=== PATIENT | female | born 1990 | race Caucasian/White ===

== ENCOUNTER 2024-02-27 09:45 | Inpatient (IN) | payer BC ==
[2024-02-27 10:36] LABS: APPEARANCE,URINE CLEAR; BILIRUBIN,URINE NEGATIVE (NEGATIVE); COLOR,URINE YELLOW; GLUCOSE,URINE NEGATIVE (NEGATIVE); KETONES,URINE NEGATIVE (NEGATIVE); LEUKOCYTE ESTERASE,URINE TRACE (NEGATIVE); NITRITE,URINE NEGATIVE (NEGATIVE); OCCULT BLOOD,URINE MODERATE (NEGATIVE); PROTEIN,URINE NEGATIVE (NEGATIVE); UROBILINOGEN,URINE 0.2 EU/dL (<2.0)
[2024-02-27] MEDS ORDERED: Misoprostol 200 MCG Tab PO PRN (10:41)
[2024-02-27] MEDS ORDERED: Butorphanol 2 MG/ML SDV IVPUSH PRN (10:41)
[2024-02-27] MEDS ORDERED: Sodium Chloride 0.9% 20 ML SDV IV PRN (10:41)
[2024-02-27] MEDS ORDERED: Sodium Chloride 0.9% 2.5 ML Syringe FLUSH PRN (10:41)
[2024-02-27] MEDS ORDERED: Carboprost Tromethamine 250 MCG/1 mL Vial IM PRN (10:41)
[2024-02-27] MEDS ORDERED: Sodium Chloride 0.9% 10 ML Syringe FLUSH PRN (10:41)
[2024-02-27] MEDS ORDERED: Tranexamic Acid IN NACL,ISO-OS 1,000 MG in Premix Bag 1 BAG IV PRN (10:41)
[2024-02-27] MEDS ORDERED: Methylergonovine 0.2 MG/1 ML Amp IM PRN (10:41)
[2024-02-27] MEDS ORDERED: Water For Irrigation,Sterile 1,000 ML Container IRR PRN (10:41)
[2024-02-27] MEDS ORDERED: Ondansetron 4 MG/2 ML SDV IVPUSH PRN (10:41)
[2024-02-27] MEDS ORDERED: Lidocaine 1% 50 ML MDV INJECT PRN (10:41)
[2024-02-27 11:03] LABS: HEMATOCRIT 35.1 % (37.0-47.0); HEMOGLOBIN 12.2 g/dL (12.0-16.0); MEAN CORPUSCULAR HEMOGLOBIN 29.9 pg (28.0-32.0); MEAN CORPUSCULAR HGB CONC 34.8 g/dL (32.0-36.0); MEAN PLATELET VOLUME 10.8 fL (9.4-12.3); PLATELET COUNT,PLT 220 K/uL (150-400); RED BLOOD CELL COUNT 4.08 M/uL (4.10-5.30); WHITE BLOOD CELL COUNT,WBC 9.73 K/uL (3.9-11.3)
[2024-02-27] MEDS ORDERED: Phenylephrine HCl In 0.9% NaCl 1 MG/10 ML Syringe IVPUSH PRN (12:55)
[2024-02-27] MEDS ORDERED: ePHEDrine 50 MG/ML SDV IVPUSH PRN ×2 (12:55)
[2024-02-27] MEDS ORDERED: dexmedeTOMIDine HCl 200 MCG/2 ML SDV EPIDUR SCH (13:00)
[2024-02-27] MEDS ORDERED: Terbutaline 1 MG/ML SDV SUBCUT PRN (13:49)
[2024-02-27] MEDS: Lactated Ringers 1,000 ML IV SCH (14:31)
[2024-02-27] MEDS: Misoprostol 50 MCG (1/2 of 100 MCG) Tab VAG ONE (14:31)
[2024-02-27] MEDS: Ropivacaine HCl/PF 400 MG in Premix Bag 1 BAG EPIDUR SCH (17:15)
[2024-02-27] MEDS: Oxytocin/0.9 % Sodium Chloride 30 UNIT/500 ML BAG IV SCH (19:12)
[2024-02-27] MEDS: Phenylephrine HCl In 0.9% NaCl 1 MG/10 ML Syringe IVPUSH PRN (20:34)
[2024-02-28] MEDS: Oxytocin/0.9 % Sodium Chloride 30 UNIT/500 ML BAG IV SCH
[2024-02-28] MEDS ORDERED: Lanolin 100% Cream 7 GM Tube TOP PRN (01:01)
[2024-02-28] MEDS ORDERED: Sennosides 8.6 MG Tab PO PRN (01:01)
[2024-02-28] MEDS ORDERED: Docusate Sodium 100 MG Cap PO PRN (01:01)
[2024-02-28] MEDS: Benzocaine/Menthol 20%-0.5% Spray 78 GM Cannister TOP PRN (02:23)
[2024-02-28] MEDS: Witch Hazel Medicated Pads 40/Jar TOP PRN (02:24)
[2024-02-28] MEDS: Ibuprofen 800 MG Tab PO PRN (02:24)
[2024-02-28] MEDS: Acetaminophen 500 MG Tab PO PRN (07:01)
[2024-02-28 14:26] LABS: HEMOGLOBIN 11.2 g/dL (12.0-16.0)
[2024-02-29] MEDS: Measles, Mumps & Rubella Vaccine 0.5 ML SDV SUBCUT ONE (13:01)
== END 2024-02-29 14:27 | disposition home or self-care (01) | DRG 560 ==
LOC: MW.OBCHECK 09:45 → MW.OB 11:53 → OBSVTOIN 02-28 01:01 → MW.OB 02-28 04:02
PROVIDERS: ADMIT Obstetrics & Gynecology; ATTEND Obstetrics & Gynecology
PROC: 10E0XZZ Delivery of Products of Conception, External Approach (ICD-10-PCS; principal; 2024-02-28)
PROC: 0HQ9XZZ Repair Perineum Skin, External Approach (ICD-10-PCS; 2024-02-28)
DX: O42.02 Full-term premature rupture of membranes, onset of labor within 24 hours of rupture (principal); Z3A.38 38 weeks gestation of pregnancy; Z37.0 Single live birth; O98.52 Other viral diseases complicating childbirth; O99.344 Other mental disorders complicating childbirth; O70.0 First degree perineal laceration during delivery; F41.9 Anxiety disorder, unspecified; F32.A Depression, unspecified; B00.9 Herpesviral infection, unspecified
CPT/HCPCS: 01967; 36415; 51702; 59025; 59300; 59409; 59414; 81003; 84112; 85014; 85018; 85027; 86592; 86850; 86900; 86901; 90471; 90707; A9270-GY; J2371; J2590; J2795; J7120